=== PATIENT | male | born 1975 | race Caucasian/White ===

== ENCOUNTER 2016-08-16 12:44 | Inpatient (IN) | payer BC ==
--- NOTE | ~2016-08-16 | HP ---
History And Physical [place] [id number] [facility] [place]. [address] NAME: MISHA CISNEROS JR : 73 STATUS : ADM Henry PAT#: [id number] AGE: 41 ADM/REG DATE : 08/16/16 MR#: [id number] REPORT SERV DATE: 08/17/16 DICTATED BY: DEISY LO DATE: 08/17/16 REPORT STATUS : Draft TRANSCRIBED BY: ALEKSANDRA DATE: 08/17/16 DATE OF ADMISSION: 08/16/2016 PRIMARY CARE PROVIDER: None. We will attempt a new patient appointment with Lo Valdes. SMT TECHNICIAN: Albetr Pimentel M.D. (We will arrange new patient appointment). CHIEF COMPLAINT: Palpitations and short of breath. HISTORY OF PRESENT ILLNESS: A very pleasant 41-year-old white gentleman with no known history of CAD or previous atrial fibrillation events, states that he has been treated for bronchitis recently. He had a followup on 08/16/2016 at Urgent Care because he had complaints of breathlessness and a cough. He was examined, and EKG was performed, and he was found to be in atrial fibrillation. The patient states he has had a cough for approximately four weeks, was treated for bronchitis recently on 08/11/2016 with antibiotics and a steroid injection, and since on 08/12/2016 felt his palpitations were more intense or persistent. He denies any chest pain, pressure, or tightness. He denies any nausea, diaphoresis, dizziness, or belching. Of note, he does state that he was followed by Dr. Mcclelland in 1999 for a rhythm disturbance, but it was felt he did not require any treatment at that time. Several terms have been mentioned to the patient such as SVT, PACs, PVCs, or atrial fibrillation, none of which he remembers being told. The patient denies any personal history of myocardial infarction, stroke, DVT, or pulmonary embolus. The patient was recently treated for bronchitis last week with antibiotics and a steroid injection. Recent persistent palpitations. No syncopal episodes. Denies PND, but does report orthopnea. PAST MEDICAL HISTORY: 1. New-onset atrial fibrillation with RVR. 2. History of dysrhythm[place] [address] Mcclelland. PAST SURGICAL HISTORY: Tonsillectomy. SOCIAL HISTORY: He is . Does not have any children. He is employed at [employer]. Works out at the gym daily. Denies tobacco or illicits. Rarely consumes alcohol. FAMILY HISTORY: Mother with CAD and bypass in her 50s, remains alive at 65. No reported atrial fibrillation events in the first-degree relatives. REVIEW OF SYSTEMS: A 14-point review of systems performed, significant for HPI. No other contributory diagnoses identified. ALLERGIES: NO KNOWN DRUG ALLERGIES. History And Physical [address] [address] NAME: MISHA CISNEROS JR : 73 STATUS : ADM Henry PAT#: [id number] AGE: 41 ADM/REG DATE : 08/16/16 MR#: [id number] REPORT SERV DATE: 08/17/16 DICTATED BY: DEISY LO DATE: 08/17/16 REPORT STATUS : Draft TRANSCRIBED BY: ALEKSANDRA DATE: 08/17/16 HOME MEDICATIONS: Recent Zithromax 250 daily, completed on 08/15/2016; guaifenesin with codeine for cough. PHYSICAL EXAMINATION: BLOOD PRESSURE: 121/94, PULSE: 127, irregularly irregular, RESPIRATORY RATE: 15, TEMPERATURE: 97.6, O2 saturation 94% on room air. HEIGHT: 6 feet 1 inch, WEIGHT: 261 pounds. BMI of 34. GENERAL: Cooperative, in no apparent distress. HEENT: Pupils 2 mm, sclera nonicteric. Nares patent. Moist mucous membranes. No xanthelasma. NECK: Trachea midline, no thyromegaly. No JVD. No bruits. LYMPH: No cervical lymphadenopathy. No supraclavicular lymphadenopathy. RESPIRATORY: Unlabored respirations. Breath sounds clear bilaterally to posterior auscultation. No wheezes or rhonchi. CARDIOVASCULAR: Irregularly irregular rate with a variable S1 and S2. EXTREMITIES: Without edema. Pulses 2+ bilaterally. ABDOMEN: Soft, nontender, nondistended, normal bowel sounds auscultated throughout. No organomegaly. SKIN: Warm, dry extremities. No pallor, or cyanosis. PSYCHIATRIC: Appropriate affect. Alert, oriented x3. LABORATORY DATA: Troponin 0.02 twice. TSH 1.990, free T4 of 1.24. BNP 299.9. Potassium 4.7, BUN 16, creatinine 1.18, glucose 107, and magnesium 2.2. WBC 11.6, hemoglobin 14.8, hematocrit 43.2, and platelet count 188,000. EKG; atrial fibrillation with RVR. ASSESSMENT AND PLAN: 1. Atrial fibrillation with rapid ventricular response. The patient has been observed in the Observation Unit overnight. Lungs are clear following Lasix 20 provided by ED, n.p.o. for DONNA cardioversion at 1500 hours. Continue Cardizem drip. Continue Eliquis 5 mg twice daily. We will obtain transthoracic echocardiogram as well. Cardiology follow up with Dr. Pimentel in two weeks. 2. NOAC. Eliquis 5 mg twice daily at discharge for one to three months. The patient will follow up with Dr. Pimentel in two weeks. OLGA/ALEKSANDRA NICOLAS Grimm, HISTOLOGY TECHNICIAN-BC / [id number] CC: NICOLAS Grimm, HISTOLOGY TECHNICIAN-BC Albert Pimentel M.D.
--- NOTE | ~2016-08-16 | OP ---
Record Of Operation [facility] [address] [place]. [address] NAME: MISHA CISNEROS JR : 73 STATUS : ADM Henry PAT#: [id number] AGE: 41 ADM/REG DATE : 08/16/16 MR#: [id number] REPORT SERV DATE: 08/18/16 DICTATED BY: DATE: REPORT STATUS : Draft TRANSCRIBED BY: MODL DATE: 08/17/16 DATE OF PROCEDURE: 08/17/2016 CHIEF COMPLAINT/REASON FOR STUDY: Atrial fibrillation. Written informed consent obtained. Please see chart for documentation. PROCEDURE: With the assistance of my Anesthesia colleagues, Mr. Cisneros was sedated for the procedure with IV propofol. The transesophageal probe was placed with one attempt. Salient 2D echocardiographic, color, and spectral Doppler images were obtained. Following verification of no left atrial appendage thrombus present, the transesophageal probe was withdrawn and direct current cardioversion was attempted, 200 joules was given x1. The patient remained in atrial fibrillation with rapid ventricular response. This was repeated at 300 joules x1. The patient remained in atrial fibrillation with rapid ventricular response. While the patient still was sedated, the transesophageal probe was replaced to obtain salient 3D echocardiographic images. Following the procedure, the transesophageal probe was withdrawn. There were no complications. SALIENT ECHOCARDIOGRAPHIC IMAGES: 1. The left ventricular systolic function is moderately depressed with a visually estimated ejection fraction between 35% and 40%. 2. The right ventricle is dilated and moderately hypokinetic. 3. The right atrium is moderately to severely dilated. 4. The left atrium is moderately dilated. There was no evidence of left atrial thrombus present. 5. The left atrial appendage was interrogated at multiple levels and depths. There was no evidence of left atrial appendage thrombus. Doppler velocities within the left atrial appendage ranged between 30 and 40 cm/sec. 6. The left upper pulmonary vein was interrogated. There was systolic flow reversal noted in the left upper pulmonary vein. 7. The mitral valve leaflets appeared normal; however, the mitral valve anulus was dilated, thus preventing full coaptation of the mitral valve leaflets. There was quegxfty-rf-orfnvl mitral valve regurgitation present. The vena contracta measured 0.8 cm. The PISA radius was 0.9 cm. The effective regurgitant orifice was 0.4 cm. Estimated regurgitant volume is 53 mL. This is consistent with whmomqwc-en-syevgp mitral regurgitation in the setting of left upper pulmonary vein flow reversal. 3D echo cardiographic images showed that the leaflets fail to provide full coaptation. 8. The tricuspid valve appeared structurally normal with trivial color flow evidence of tricuspid valvular regurgitation. There was no evidence of stenosis. 9. The aortic valve leaflets appeared trileaflet. There was no evidence of aortic regurgitation or stenosis. 10.The pulmonary valve leaflets appeared normal without evidence of regurgitation or stenosis. 11.There was no evidence of pericardial effusion. 12.The large left-sided pleural effusion was noted. 13.There was minimal atherosclerotic plaque noted in the thoracic aorta. Record Of Operation [facility] [address] [place]. [address] NAME: MISHA CISNEROS JR : 73 STATUS : ADM Henry PAT#: [id number] AGE: 41 ADM/REG DATE : 08/16/16 MR#: [id number] REPORT SERV DATE: 08/18/16 DICTATED BY: DATE: REPORT STATUS : Draft TRANSCRIBED BY: MODL DATE: 08/17/16 IMPRESSION: 1. Unsuccessful transesophageal echocardiography cardioversion. 2. Moderately decreased left ventricular systolic function with ejection fraction between 35% and 40%. 3. Moderately decreased right ventricular systolic function. 4. Biatrial dilatation. 5. Rodutxhn-rf-boqucp mitral regurgitation due to failure of leaflets to provide full coaptation and dilated anulus consistent with Lilly classification 1. [facility] Yuli Julian M.D. / [id number] CC: Albert Pimentel M.D.
--- NOTE | ~2016-08-16 | CN ---
Consultation Report [facility] [address] [place]. [address] NAME: JEREMI CISNEROS JR : 73 STATUS : ADM Henry PAT#: [id number] AGE: 41 ADM/REG DATE : 08/16/16 MR#: [id number] REPORT SERV DATE: 08/18/16 DICTATED BY: DIGNA ROWAN DATE: 08/18/16 REPORT STATUS : Draft TRANSCRIBED BY: MODL DATE: 08/18/16 CONSULT REPORT DATE OF CONSULTATION: 08/18/2016 REASON FOR CONSULTATION: Mitral valve regurgitation. HISTORY OF PRESENT ILLNESS: This is a pleasant 41-year-old, male, who was recently suffering from bronchitis, so he went to an outpatient clinic for evaluation. He had an EKG that showed atrial fibrillation with RVR. The patient presented to the emergency room on 08/16/2016 with palpitations and shortness of breath. He was in atrial fibrillation with heart rate in the 120s. Chest x-ray showed pulmonary edema, which is thought to be secondary to his atrial fibrillation. He was diuresed and taken for transesophageal echocardiogram for attempted cardioversion yesterday. Cardioversion was not successful. The patient remains in atrial fibrillation. DONNA subsequently found him to have moderate-to- severe mitral valve regurgitation with moderate decreased left ventricular systolic function, estimated around 35%-40%. The patient was taken for cardiac catheterization today, which showed no significant obstructive disease. Of note, the patient did receive a dose of Eliquis 10 mg on 08/16/2016 and 5 mg on 08/17/2016. The patient is now recovering after radial arteriogram with no complaints of chest pain or shortness of breath. His is with him at the bedside. PAST MEDICAL HISTORY: Significant only for new onset of atrial fibrillation with RVR. He has a history of dysrhythmia in 2000, treated by Dr. Mckinnon. SURGICAL HISTORY: Only tonsillectomy. SOCIAL HISTORY: He is . Employed at [employer]. He stays active, saying he works out every day. He rarely uses alcohol. No tobacco or use of illicit drugs. FAMILY HISTORY: Significant for coronary artery disease, but no history of arrhythmias. ALLERGIES: NO KNOWN DRUG ALLERGIES. HOME MEDICATIONS: Guaifenesin as needed. REVIEW OF SYSTEMS: A 10-point review of systems was obtained and is negative other than HPI. PHYSICAL EXAMINATION: VITAL SIGNS: From today, temperature 97.8, heart rate 116, blood pressure 110/52, respiratory rate 22, O2 saturation 94% on 2 L. GENERAL: Pleasant, male, in no acute distress. PSYCH: Normal mood, pleasant, talkative. Consultation Report [facility] [address] [place]. [address] NAME: JEREMI CISNEROS JR : 73 STATUS : ADM Henry PAT#: [id number] AGE: 41 ADM/REG DATE : 08/16/16 MR#: [id number] REPORT SERV DATE: 08/18/16 DICTATED BY: DIGNA ROWAN DATE: 08/18/16 REPORT STATUS : Draft TRANSCRIBED BY: ALEKSANDRA DATE: 08/18/16 NEURO: Alert and oriented x3. Pupils are equal, round, reactive to light, and accommodation. Equal strength in bilateral upper extremities and bilateral lower extremities. HEENT: Head normocephalic and atraumatic. Sclerae clear. Nose midline with no abnormalities. Teeth with good dentition. Ears with no abnormalities. NECK: Supple with no thyromegaly or lymphadenopathy. LUNGS: Clear to auscultation bilaterally with normal effort. CARDIAC: S1, S2. Systolic murmur, atrial fibrillation on the monitor. Heart rate in the low 100s. ABDOMEN: Soft, obese, and nontender with active bowel sounds. EXTREMITIES: Free of cyanosis, clubbing, or edema. LABORATORY DATA: White blood cell count 11.6, hemoglobin 14.9, hematocrit 43.5, platelets 203. Sodium 139, potassium 4.3, chloride 106, bicarbonate 24. BUN 26, creatinine 1.46. Glucose 176. ASSESSMENT AND PLAN: This is a pleasant 41-year-old male with recent onset of atrial fibrillation with rapid ventricular response. He had unsuccessful cardioversion, but DONNA subsequently found that he had eyegmfae-id-nwdphe mitral valve regurgitation. He was taken for cardiac catheterization today and found to have no significant obstructive coronary disease. The patient needs mitral valve repair versus replacement plus or minus Maze or left atrial appendage clip for atrial fibrillation. There is a suspicion that his atrial fibrillation is related to his mitral valve and would improve with mitral valve repair. I will discuss the plan of care with Dr. Rascon, and after he has to locate the echocardiogram, I would determine what surgical approach is best. As for now, I would avoid any further doses of Eliquis if the patient is to remain inpatient. If the patient is to go home, he could continue on Eliquis and then this could be stopped upon his followup appointment with us. I discussed this with Jenni, Dr. Pimentel's nurse, and will make further plans tomorrow since he is staying in the night anyway. I calculated his STS risk scores, STS risk stratification for mitral valve replacement include an overall mortality of 1.3% and morbidity-mortality of 16.4%. significantly if mitral valve repair is possible to a mortality of 0.6% and a morbidity-mortality 12%. I discussed these findings with the patient and will discuss him in further detail once surgical plan has been made. We appreciate the consultation and we will continue to follow with Mr. Jeremi Cisneros. BENSON/ALEKSANDRA Digna Rowan NP / [id number] Consultation Report [address] [place]. [address] NAME: JEREMI CISNEROS : 73 STATUS : ADM Henry PAT#: [id number] AGE: 41 ADM/REG DATE : 08/16/16 MR#: [id number] REPORT SERV DATE: 08/18/16 DICTATED BY: DIGNA ROWAN DATE: 08/18/16 REPORT STATUS : Draft TRANSCRIBED BY: ALEKSANDRA DATE: 08/18/16 CC: Albert Pimentel M.D.
--- NOTE | ~2016-08-16 | DS ---
Discharge Summary [facility] [address] [place]. [address] NAME: MISHA CISNEROS JR : 73 STATUS : DIS IN PAT#: [id number] AGE: 41 ADM/REG DATE : 08/16/16 MR#: [id number] REPORT SERV DATE: 09/01/16 DICTATED BY: CHARMAINE GARCIA DATE: 08/31/16 REPORT STATUS : Draft TRANSCRIBED BY: MODVirgil DATE: 08/31/16 Data Collection from hospitalization DISCHARGE DIAGNOSES: 1. Atrial fibrillation with rapid ventricular response. 2. Severe mitral regurgitation. 3. Congestive heart failure -acute - systolic. 4. Amiodarone loading. CONSULTATIONS: Jorge A Presley NP. PROCEDURES PERFORMED: 1. Transesophageal echocardiogram, 08/17/2012. 2. Cardiac catheterization, 08/18/2016. DISCHARGE MEDICATIONS: Pacerone 400 mg daily, Eliquis 5 mg twice a day, Coreg 6.25 mg twice a day, Cardizem CD 180 mg daily, Lasix 20 mg daily, guaifenesin/codeine 5/10 mL every six hours as needed, and Prinivil 2.5 mg daily. CONDITION ON DISCHARGE: Stable. DISPOSITION: The patient was discharged home on a low-sodium, low-cholesterol cardiac diet with activities as instructed. He will follow up with me, 09/12/2016, and with Dr. Gregory Cramer, 09/20/2016. HOSPITAL COURSE: This is a 41-year-old man who has no known history of coronary artery disease or previous atrial fibrillation events who said that he had been treated for bronchitis recently. He had a followup on 08/16/2016 at urgent care because he had complaints of breathlessness and a cough. He was examined and an EKG was performed. He was found to be in atrial fibrillation. The patient said he had had a cough for approximately 4 weeks and was treated for bronchitis recently on 08/11/2016 with antibiotics and a steroid injection. Since 08/12/2016, he felt that his palpitations were more intense or persistent. He denied chest pain, pressure, or tightness. He said he was followed by Dr. Mcclelland in 2003 for a rhythm disturbance, but it was felt that he did not require any treatment at that time. The patient denies any personal history of myocardial infarction, stroke, DVT, or pulmonary embolus. He was admitted to the hospital at this time for further evaluation and treatment. Upon admission, troponin was 0.02 twice. White count was 11.6. EKG revealed atrial fibrillation with rapid ventricular response. He was observed in the observation unit overnight, Lasix was given in the emergency department, he was being held n.p.o. It was felt that he would need to undergo transesophageal echocardiogram and cardioversion. Cardizem drip was continued. Eliquis was continued. Transthoracic echocardiogram was also going to be performed. It was felt that he would need to be on Eliquis twice a day at discharge for 1 to 3 months. The following day, the patient underwent transthoracic echocardiography with an attempt at cardioversion. The patient does have a large pleural effusion. We would consider angiogram, right and left heart catheterization. On 08/18/2016, the patient seemed to be more comfortable. He underwent a cardiac Discharge Summary [address] [address] NAME: MISHA CISNEROS : 73 STATUS : DIS IN PAT#: [id number] AGE: 41 ADM/REG DATE : 08/16/16 MR#: [id number] REPORT SERV DATE: 09/01/16 DICTATED BY: CHARMAINE GARCIA DATE: 08/31/16 REPORT STATUS : Draft TRANSCRIBED BY: ALEKSANDRA DATE: 08/31/[address] Donnie Vaughn. The patient has severe mitral regurgitation. He had decreased left ventricular systolic function with ejection fraction 35% to 40% and acute congestive heart failure. Amiodarone was added, IV heparin was being given for now. Coreg and lisinopril were added. IV Cardizem was being weaned. He was seen by Jorge A Presley regarding mitral valve regurgitation. The patient's cardioversion had been unsuccessful, he remained in atrial fibrillation. Transesophageal echocardiogram subsequently found him to have sewrcasn-mg-lwlgoc mitral valve regurgitation with moderate decreased left ventricular systolic function, estimated around 35% to 40%. Cardiac catheterization had shown no significant obstructive disease. He had received a dose of Eliquis on 08/16/2016 and on 08/17/2016. The patient was now recovering after radial arteriogram with no complaints of chest pain or shortness of breath. White blood cell count was 11.6. It was felt that the patient would need mitral valve repair versus replacement plus or minus maze procedure or left atrial appendage clip for atrial fibrillation. There was a suspicion that the atrial fibrillation was related to his mitral valve and would improve with mitral valve repair. At this time, he recommended that we avoid any further doses of Eliquis if the patient were to remain an inpatient. If the patient was going to go home, the Eliquis could be continued and this could be stopped at the time of his followup appointment regarding surgery. On 08/19/2016, he did report occasional episodes of palpitations and shortness of breath. He was off O2. Telemetry revealed atrial fibrillation with heart rate in the low 100s. He had no new complaints. He has some shortness of breath. He remained in atrial fibrillation with rapid ventricular response. His lungs were clear. He had 1+ edema. IV Bumex was going to be given over the weekend. Eliquis was restarted, amiodarone and Coreg were continued, Cardizem was added. The following day, he did complain of shortness of breath, but this was improving. His lungs were clear. Amiodarone loading continued. Discharge planning was performed. On 08/21/2016, he was less short of breath. Amiodarone, beta- delma, Cardizem, and Bumex were continued. Apixaban was also continued. Discharge instructions were given. Due to his improved and stable condition, he was discharged home with the above-stated instructions. Information collected by: Marcelle Barraza I submit the above information as my discharge summary. TG/MODL Charmaine Garcia M.D. / [id number] CC: Estefania Feng NP
[2016-08-16 13:50] LABS: BASOPHILS 0.2 %; BASOPHILS ABSOLUTE 0.02 10/3/uL (0.0-0.16); EOSINOPHILS 0.8 %; EOSINOPHILS ABSOLUTE 0.09 10/3/uL (0.0-0.53); ER CBC TAT 0 Hrs 08 Mins; HEMATOCRIT 43.2 % (40.0-51.0); HEMOGLOBIN 14.8 g/dL (13.6-17.8); IMMATURE GRANULOCYTES 0.3 %; IMMATURE GRANULOCYTES ABSOLUTE 0.04 10/3/uL (0.0-0.11); LYMPHOCYTES 19.6 %; LYMPHOCYTES ABSOLUTE 2.28 10/3/uL (0.67-4.30); MANUAL DIFF NO %; MEAN CORPUS HGB CONC 34.3 g/dL (32.0-36.0); MEAN CORPUSCULAR HEMOGLOB 31.8 pg (26.0-34.0); MEAN CORPUSCULAR VOLUME 92.9 fL (80-100); MEAN PLATELET VOLUME 11.5 fL (9.2-13.0); MONOCYTES 7.7 %; MONOCYTES ABSOLUTE 0.89 10/3/uL (0.21-1.20); NEUTROPHILS 71.4 %; PLATELET COUNT 188 10/3/uL (150-400); RBC DISTRIBUTION WIDTH 13.6 % (12.0-16.0); RED CELL COUNT 4.65 10/6/uL (4.7-6.1); WHITE BLOOD CELLS 11.6 10/3/uL (4.5-10.5)
[2016-08-16 13:58] LABS: INTERNATIONAL NORMAL RATI 1.1 UNITS (-); PARTIAL THROMBO TIME 28.8 SEC (22.5-37.2); PROTIME (NOT ORD) 14.4 SEC (12.0-14.5)
[2016-08-16 14:06] LABS: BUN (BLOOD UREA NITROGEN) 16 MG/DL (6-23); CHEST PAIN PROFILE TAT 0 Hrs 24 Mins; CHLORIDE, SERUM 109 MMOL/L (96-112); CO2 (CARBON DIOXIDE) 25 MMOL/L (24-34); CREATININE 1.18 MG/DL (0.70-1.30); GFR AFRICAN AMERICAN 88 ML/MIN (>=60); GFR NON AFRICAN AMERICAN 76 ML/MIN (>=60); GLUCOSE, SERUM 107 MG/DL (60-99); POTASSIUM, SERUM 4.7 MMOL/L (3.5-5.3); SODIUM, SERUM 141 MMOL/L (135-148); TROPONIN I <0.02 NG/ML (<0.05)
[2016-08-16 14:11] LABS: FREE T4 1.24 NG/DL (0.76-1.46); ULTRASENSITIVE TSH 1.99 MCIU/ML (0.358-3.740)
[2016-08-16] MEDS ORDERED: ZITH250 PO (15:26)
[2016-08-16] MEDS ORDERED: M-CLEAR WC PO (15:27)
[2016-08-16 18:25] LABS: DIRECT BILIRUBIN 0.2 MG/DL (0.0-0.4); FREE T4 1.21 NG/DL (0.76-1.46); SGPT(ALT) 177 U/L (5-65)
[2016-08-16 18:46] LABS: ALBUMIN 3.8 G/DL (3.5-5.0); ALKALINE PHOSPHATASE 63 U/L (45-117); INDIRECT BILIRUBIN(NOT ORDER) 0.6 MG/DL (0.1-0.9); SGOT(AST) 98 U/L (5-40); TOTAL BILIRUBIN 0.8 MG/DL (0-1.2); TOTAL PROTEIN 6.3 G/DL (6.0-8.5)
[2016-08-17 05:27] LABS: INTERNATIONAL NORMAL RATI 1.2 UNITS (-); PROTIME (NOT ORD) 15.3 SEC (12.0-14.5)
[2016-08-17 05:28] LABS: PARTIAL THROMBO TIME 32.8 SEC (22.5-37.2)
[2016-08-18 03:10] LABS: BASOPHILS 0.3 %; BASOPHILS ABSOLUTE 0.04 10/3/uL (0.0-0.16); EOSINOPHILS 1.3 %; EOSINOPHILS ABSOLUTE 0.15 10/3/uL (0.0-0.53); HEMATOCRIT 43.5 % (40.0-51.0); HEMOGLOBIN 14.9 g/dL (13.6-17.8); IMMATURE GRANULOCYTES 0.5 %; IMMATURE GRANULOCYTES ABSOLUTE 0.06 10/3/uL (0.0-0.11); LYMPHOCYTES ABSOLUTE 3.02 10/3/uL (0.67-4.30); MEAN CORPUS HGB CONC 34.3 g/dL (32.0-36.0); MEAN CORPUSCULAR HEMOGLOB 32.2 pg (26.0-34.0); MEAN PLATELET VOLUME 12.2 fL (9.2-13.0); MONOCYTES 8.7 %; MONOCYTES ABSOLUTE 1.01 10/3/uL (0.21-1.20); NEUTROPHILS 63.2 %; NEUTROPHILS ABSOLUTE 7.32 10/3/uL (2.02-8.40); PLATELET COUNT 203 10/3/uL (150-400); RBC DISTRIBUTION WIDTH 13.5 % (12.0-16.0); RED CELL COUNT 4.63 10/6/uL (4.7-6.1); WHITE BLOOD CELLS 11.6 10/3/uL (4.5-10.5)
[2016-08-18 03:15] LABS: MANUAL DIFF NO %
[2016-08-18 03:27] LABS: A/G RATIO 1.3 (0.7-1.9); ALBUMIN 3.6 G/DL (3.5-5.0); ALKALINE PHOSPHATASE 75 U/L (45-117); BUN (BLOOD UREA NITROGEN) 26 MG/DL (6-23); CALCIUM, SERUM 8.6 MG/DL (8.5-10.4); CHLORIDE, SERUM 106 MMOL/L (96-112); CO2 (CARBON DIOXIDE) 24 MMOL/L (24-34); CREATININE 1.46 MG/DL (0.70-1.30); GFR AFRICAN AMERICAN 68 ML/MIN (>=60); GFR NON AFRICAN AMERICAN 58 ML/MIN (>=60); GLOBULIN 2.7 G/DL (2.5-4.1); GLUCOSE, SERUM 176 MG/DL (60-99); POTASSIUM, SERUM 4.3 MMOL/L (3.5-5.3); SGOT(AST) 52 U/L (5-40); SGPT(ALT) 136 U/L (5-65); SODIUM, SERUM 139 MMOL/L (135-148); TOTAL BILIRUBIN 0.8 MG/DL (0-1.2); TOTAL PROTEIN 6.3 G/DL (6.0-8.5)
[2016-08-18 09:52] LABS: CHOL/HDL RATIO(NOT ORDER) 3.3 (0-5); CHOLESTEROL 127 MG/DL (< 200); HDL CHOLESTEROL 38 MG/DL (> 39); LDL CHOLESTEROL 73 MG/DL (< 130); NON-HDL CHOLESTEROL 89 MG/DL (< 160); TRIGLYCERIDE 82 MG/DL (< 150)
[2016-08-19 07:46] LABS: BASOPHILS 0.3 %; BASOPHILS ABSOLUTE 0.03 10/3/uL (0.0-0.16); EOSINOPHILS 2.3 %; EOSINOPHILS ABSOLUTE 0.24 10/3/uL (0.0-0.53); HEMATOCRIT 43.1 % (40.0-51.0); HEMOGLOBIN 14.3 g/dL (13.6-17.8); IMMATURE GRANULOCYTES 0.2 %; IMMATURE GRANULOCYTES ABSOLUTE 0.02 10/3/uL (0.0-0.11); LYMPHOCYTES 19.5 %; LYMPHOCYTES ABSOLUTE 2.04 10/3/uL (0.67-4.30); MANUAL DIFF NO %; MEAN CORPUS HGB CONC 33.2 g/dL (32.0-36.0); MEAN CORPUSCULAR HEMOGLOB 31.8 pg (26.0-34.0); MEAN CORPUSCULAR VOLUME 95.8 fL (80-100); MONOCYTES ABSOLUTE 0.94 10/3/uL (0.21-1.20); NEUTROPHILS 68.7 %; PLATELET COUNT 155 10/3/uL (150-400); WHITE BLOOD CELLS 10.5 10/3/uL (4.5-10.5)
[2016-08-19 07:50] LABS: BUN (BLOOD UREA NITROGEN) 22 MG/DL (6-23); CALCIUM, SERUM 8.7 MG/DL (8.5-10.4); CHLORIDE, SERUM 110 MMOL/L (96-112); CO2 (CARBON DIOXIDE) 23 MMOL/L (24-34); CREATININE 1.15 MG/DL (0.70-1.30); GFR AFRICAN AMERICAN 90 ML/MIN (>=60); GFR NON AFRICAN AMERICAN 78 ML/MIN (>=60); GLUCOSE, SERUM 110 MG/DL (60-99); POTASSIUM, SERUM 4.8 MMOL/L (3.5-5.3); SODIUM, SERUM 140 MMOL/L (135-148)
[2016-08-20 06:52] LABS: BUN (BLOOD UREA NITROGEN) 25 MG/DL (6-23); CALCIUM, SERUM 9.3 MG/DL (8.5-10.4); CHLORIDE, SERUM 102 MMOL/L (96-112); CO2 (CARBON DIOXIDE) 28 MMOL/L (24-34); CREATININE 1.41 MG/DL (0.70-1.30); GFR AFRICAN AMERICAN 71 ML/MIN (>=60); GFR NON AFRICAN AMERICAN 61 ML/MIN (>=60); GLUCOSE, SERUM 103 MG/DL (60-99); POTASSIUM, SERUM 4.2 MMOL/L (3.5-5.3); SODIUM, SERUM 136 MMOL/L (135-148)
[2016-08-21 04:54] LABS: BUN (BLOOD UREA NITROGEN) 26 MG/DL (6-23); CALCIUM, SERUM 9.3 MG/DL (8.5-10.4); CHLORIDE, SERUM 98 MMOL/L (96-112); CO2 (CARBON DIOXIDE) 32 MMOL/L (24-34); CREATININE 1.51 MG/DL (0.70-1.30); GFR AFRICAN AMERICAN 65 ML/MIN (>=60); GFR NON AFRICAN AMERICAN 56 ML/MIN (>=60); GLUCOSE, SERUM 103 MG/DL (60-99); POTASSIUM, SERUM 4.7 MMOL/L (3.5-5.3); SODIUM, SERUM 135 MMOL/L (135-148)
[2016-08-21] MEDS ORDERED: ELIQUIS 5 MG TAB5 MG PO (10:49)
[2016-08-21] MEDS ORDERED: PACERONE400 MG PO (10:49)
[2016-08-21] MEDS ORDERED: COREG6 PO (10:50)
[2016-08-21] MEDS ORDERED: CARTIA XT240 MG/24 PO (10:50)
[2016-08-21] MEDS ORDERED: PRIN2.5 PO (10:51)
[2016-08-21] MEDS ORDERED: L20 PO (10:51)
[2016-10-01] MEDS ORDERED: ASAB PO (10:10)
[2016-10-01] MEDS ORDERED: COREG6 PO (10:11)
[2016-10-01] MEDS ORDERED: LIPITOR40 PO (10:11)
[2016-10-01] MEDS ORDERED: L20 PO (10:12)
[2016-10-01] MEDS ORDERED: PRIN2.5 PO (10:12)
[2016-10-01] MEDS ORDERED: COUMADIN3 MG PO (10:14)
[2016-10-01] MEDS ORDERED: NORCO1 TAB PO (10:16)
== END 2016-08-21 12:06 | disposition home or self-care (01) | DRG 287 ==
LOC: ER 12:44 → CDU1 16:20 → CDU2 17:02
PROVIDERS: Clinical Nurse Specialist; Emergency Medicine; Internal Medicine Cardiovascular Disease
PROC: B246ZZ4 Ultrasonography of Right and Left Heart, Transesophageal (ICD-10-PCS; 2016-08-17)
PROC: 5A2204Z Restoration of Cardiac Rhythm, Single (ICD-10-PCS; 2016-08-17)
PROC: 4A023N8 Measurement of Cardiac Sampling and Pressure, Bilateral, Percutaneous Approach (ICD-10-PCS; principal; 2016-08-18)
PROC: B2111ZZ Fluoroscopy of Multiple Coronary Arteries using Low Osmolar Contrast (ICD-10-PCS; 2016-08-18)
PROC: B2151ZZ Fluoroscopy of Left Heart using Low Osmolar Contrast (ICD-10-PCS; 2016-08-18)
DX: I50.21 Acute systolic (congestive) heart failure (principal); I48.91 Unspecified atrial fibrillation; I34.0 Nonrheumatic mitral (valve) insufficiency; Z82.49 Family history of ischemic heart disease and other diseases of the circulatory system
CPT/HCPCS: 71020; 80048; 80053; 80061; 80076; 82803; 83735; 83880; 84439; 84443; 84484; 85025; 85610; 85730; 92960; 93005; 93312; 93320; 93325; 93460; 96365; 96366; 96375; 99152; 99153; 99291; A9270-GY; C1769; C1887; C1894; C8929; J1940; J2250; J2405; J3010; Q9957; Q9967